=== PATIENT | female | born 1970 | race Caucasian/White ===

== ENCOUNTER 2022-11-18 11:49 | Day surgery (SDC) | payer OTHER ==
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
[2022-11-18] MEDS ORDERED: Lactated Ringers 1,000 ML IV ONE (12:19)
[2022-11-18] MEDS ORDERED: Lactated Ringers 1,000 ML IV SCH (12:30)
[2022-11-18] MEDS ORDERED: DIPRIVAN 200 MG/20 ML IV ONE ×2 (13:43→13:53)
[2022-11-18] MEDS ORDERED: Xylocaine-Mpf 2% 5 Ml Vial ONE (13:43)
[2022-11-18] MEDS ORDERED: Versed 2 MG/2 ML Injection ONE (13:43)
[2022-11-18 14:39] VITALS: O2SAT 96
[2022-11-18 14:47] VITALS: PULSE 71
[2022-11-18 15:03] VITALS: BP 146/81
--- NOTE | 2022-11-19 07:34 | OP ---
SURGERY DATE/TIME: 11/18/2022 6659 PREOPERATIVE DIAGNOSIS: Need for screening colonoscopy. POSTOPERATIVE DIAGNOSES: 1) ASA Class II. 2) Small polyps descending colon and rectum. 3) Few scattered diverticula. 4) Fair bowel prep. 5) Withdrawal time approximately ten minutes. PROCEDURES: 1) Colonoscopy to cecum. 2) Hot snare polypectomy descending colon polyp. 3) Hot biopsy polypectomy rectal polyps x2. SURGEON: Dr. Jagdeep Townsend. ANESTHESIA: MAC. ESTIMATED BLOOD LOSS: Minimal. INDICATIONS: As noted above. Risks and benefits explained in detail but not limited to and consent obtained. DESCRIPTION OF PROCEDURE AND FINDINGS: The patient is taken to the endoscopy room. MAC anesthesia induced. After official time out and no disagreement with planned procedure, digital rectal exam did not reveal any rectal masses. She had some minimal internal hemorrhoids. Video colonoscope inserted and passed up through the slightly tortuous sigmoid, descending, transverse and ascending colon around to the cecum. Appendiceal orifice and ileocecal valve well visualized and photo documented. Prep overall was fair with slight thck liquidy coat just on the right colon limiting the exam for small lesions this is suctioned irrigated as clear as possible. ASA Class is II. The scope is carefully withdrawn over the next ten plus minutes irrigating and suctioning out as well as possible. There was a 2 to 3.5 mm polyp in the descending colon removed with hot snare polypectomy. Good hemostasis noted. She had a few scattered diverticula in the left colon. Otherwise two small early polyps versus hyperplastic lesions in the rectum removed with hot biopsy forceps with brief bursts of cautery. Good hemostasis noted. The patient tolerated the procedure well. There were no immediate complications. Findings discussed with the family out in the waiting area.
== END 2022-11-18 15:06 | disposition home or self-care (01) ==
LOC: SDC 11:49
PROVIDERS: ATTEND Surgery
DX: Z12.11 Encounter for screening for malignant neoplasm of colon (principal); D12.4 Benign neoplasm of descending colon; K62.1 Rectal polyp; K57.90 Diverticulosis of intestine, part unspecified, without perforation or abscess without bleeding; K64.8 Other hemorrhoids
CPT/HCPCS: J2250; J2704